=== PATIENT | female | born 1940 | race Caucasian/White ===

== ENCOUNTER → 2016-08-11 | Outpatient (CLI) | payer OTHER ==
[~2016-08-11] MED LIST: AMR2 PO; ASPI81TA28 PO; GLC500 PO; GLUCTAB7 PO; LEVO75TA5 PO; LISI-787 PO; LPT40 PO; MAGN400T6 PO; TNR25 PO
--- NOTE | 2016-08-22 13:46 | MAMMOGRAPHY REPORT ---
THIS REPORT HAS BEEN AMENDED. UNILATERAL RIGHT DIGITAL SCREENING MAMMOGRAM TOMOSYNTHESIS WITH CAD: 08/11/2016 CLINICAL HISTORY: Asymptomatic. Personal history of breast cancer. Routine screening. Post left mast ectomy. TECHNIQUE: Breast tomosynthesis in addition to standard 2D mammography was performed. Current study was also evaluated with a Computer Aided Detection (CAD) system. Right CC and MLO 2-D and tomosynt hesis images were obtained. COMPARISON: No prior exams were available for comparison. BREAST COMPOSITION: There are scattered areas of fibroglandular density in the right breast. FINDINGS: The patient is status post left mastectomy. There are no suspicious masses, calcificatio ns, or areas of architectural distortion noted in the right breast. A few scattered benign-appearin g calcifications are noted. IMPRESSION: ACR BI-RADS CATEGORY 0: INCOMPLETE EVALUATION: NEED ADDITIONAL IMAGING EVALUATION No mammographic evidence of malignancy in the right breast. However, recommend comparison with prio r outside mammograms to evaluate for any possible subtle changes. The prior outside mammograms have been requested, and an addendum will be made when they are received and a comparison is made. Approximately 10% of breast cancers are not detected with mammography. A negative mammographic repor t should not delay biopsy if a clinically suggestive mass is present. Rasheeda Stephenson M.D. ah/:08/19/2016 16:43:25 [employer] Teacher: Shana Golden M, [facility] letter sent: Need Priors 0 BI-RADS Code: ACR BI-RADS Category 0: Incomplete Evaluation: Need Additional Imaging Evaluation AMENDMENT: 08/24/2016 Rasheeda Stephenson M.D. Prior outside mammograms dated 11/14/2013, 11/08/2012, 11/07/2011 from [facility] have b ecome available for comparison. Compared to the prior exams, there has been no significant interval change. There is no mammographic evidence of malignancy in the right breast. Recommend routine sc reening mammograms in one year. Amended BI-RADS: ACR BI-RADS Category 2: Benign letter sent: Normal 06/20
== END | disposition home or self-care (01) ==
LOC: C.MAMM 14:35
PROVIDERS: ATTEND Family Medicine
DX: Z12.31 Encounter for screening mammogram for malignant neoplasm of breast (principal); Z90.12 Acquired absence of left breast and nipple; Z98.82 Breast implant status

== ENCOUNTER → 2016-09-07 | Outpatient (CLI) | payer OTHER ==
[2016-09-07 09:43] LABS: URINE APPEARANCE CLEAR (CLEAR); URINE BILIRUBIN NEG (NEG); URINE COLOR YELLOW; URINE EPITHELIAL CELL AUTO 0-5 /lpf (0-5); URINE NITRITE NEG (NEG); URINE SPECIFIC GRAVITY 1.018 (1.000-1.030); UROBILINOGEN NEG (NEG); ZZUR CULT IF INDIC CLEAN CATCH NO
[2016-09-07 09:44] LABS: BASO % 0.9 %; BASO ABS # 0.06 K/uL (0-0.2); COMPLETE YES; EOS % 2.5 %; HEMATOCRIT 41.4 % (37-47); IG% 0.1 %; LYMPH % 30.9 %; LYMPH ABS # 2.12 K/uL (1.2-3.4); MEAN CELL VOLUME 91.4 fL (80-100); MEAN CORPUSCULAR HEMOGLOBIN 30.2 pg (25-34); MEAN CORPUSCULAR HGB CONC 33.1 g/dl (32-36); MEAN PLATELET VOLUME 10.3 fL (7.4-10.4); MONO % 7.1 %; NEUT % 58.5 %; PLATELET COUNT 151 K/uL (130-400); RED BLOOD COUNT 4.53 M/uL (4.2-5.4); WHITE BLOOD COUNT 6.87 K/uL (4.8-10.8)
[2016-09-07 09:51] LABS: BLOOD UREA NITROGEN 29 mg/dl (7-18); BUN/CREATININE RATIO 22.1 (10-20); CALCIUM 10.3 mg/dl (8.5-10.1); CARBON DIOXIDE 28 mmol/L (21-32); CHLORIDE 104 mmol/L (98-107); GLUCOSE 230 mg/dl (70-99); MAGNESIUM 2.3 mg/dl (1.8-2.4); PHOSPHORUS 3.2 mg/dl (2.5-4.9); POTASSIUM 4.1 mmol/L (3.5-5.1); SODIUM 139 mmol/L (136-145)
[2016-09-07 09:59] LABS: ESTIMATED AVERAGE GLUCOSE 194 mg/dl; HA1C FLAG Normal (Normal)
[2016-09-07 10:01] LABS: MANUAL MICROSCOPIC REQUIRED? NO; REVIEW REQ? NO
[2016-09-07 10:02] LABS: URINE PROTIEN/CREAT RATIO 0.1 (0-0.2); URINE TOTAL PROTEIN 12.5 mg/dl (0-11.9)
== END | disposition home or self-care (01) ==
LOC: C.LAB1850 08:12
PROVIDERS: ATTEND Internal Medicine Nephrology
DX: E11.9 Type 2 diabetes mellitus without complications (principal); N18.3 Chronic kidney disease, stage 3 (moderate)

== ENCOUNTER → 2016-09-27 | Outpatient (CLI) | payer OTHER ==
[2016-09-27 12:31] LABS: BLOOD UREA NITROGEN 21 mg/dl (7-18); BUN/CREATININE RATIO 15.9 (10-20); CALCIUM 9.4 mg/dl (8.5-10.1); CARBON DIOXIDE 25 mmol/L (21-32); CHLORIDE 106 mmol/L (98-107); GLUCOSE 297 mg/dl (70-99); MAGNESIUM 2.1 mg/dl (1.8-2.4); POTASSIUM 4.7 mmol/L (3.5-5.1); SODIUM 139 mmol/L (136-145)
== END | disposition home or self-care (01) ==
LOC: C.LAB1850 11:06
PROVIDERS: ATTEND Internal Medicine Nephrology
DX: E21.3 Hyperparathyroidism, unspecified (principal); I12.9 Hypertensive chronic kidney disease with stage 1 through stage 4 chronic kidney disease, or unspecified chronic kidney disease; N18.3 Chronic kidney disease, stage 3 (moderate)

== ENCOUNTER → 2016-10-10 | Outpatient (CLI) | payer OTHER | END | disposition home or self-care (01) | LOC: C.MAMM 15:00 | PROVIDERS: ATTEND Internal Medicine Nephrology | DX: E21.3 Hyperparathyroidism, unspecified (principal); M81.0 Age-related osteoporosis without current pathological fracture; M85.89 Other specified disorders of bone density and structure, multiple sites ==

== ENCOUNTER → 2016-10-27 | Outpatient (CLI) | payer OTHER ==
[2016-10-27 10:03] LABS: BLOOD UREA NITROGEN 26 mg/dl (7-18); BUN/CREATININE RATIO 21.5 (10-20); CALCIUM 9.9 mg/dl (8.5-10.1); CARBON DIOXIDE 28 mmol/L (21-32); CHLORIDE 109 mmol/L (98-107); GLUCOSE 102 mg/dl (70-99); POTASSIUM 4.5 mmol/L (3.5-5.1); SODIUM 142 mmol/L (136-145)
== END | disposition home or self-care (01) ==
LOC: C.LAB1850 08:47
PROVIDERS: ATTEND Internal Medicine Nephrology
DX: N18.3 Chronic kidney disease, stage 3 (moderate) (principal)

== ENCOUNTER → 2016-12-05 | Outpatient (CLI) | payer OTHER | END | disposition home or self-care (01) | LOC: C.LAB1850 09:07 | PROVIDERS: ATTEND Internal Medicine Nephrology | DX: N18.3 Chronic kidney disease, stage 3 (moderate) (principal) ==

== ENCOUNTER → 2016-12-19 | Outpatient (CLI) | payer OTHER | END | disposition home or self-care (01) | LOC: C.RDSM 13:16 | PROVIDERS: ATTEND Physical Medicine & Rehabilitation Sports Medicine | DX: M25.562 Pain in left knee (principal) ==

== ENCOUNTER → 2017-01-09 | Outpatient (CLI) | payer OTHER ==
--- NOTE | 2017-01-09 15:12 | DIAGNOSTIC IMAGING REPORT ---
MRI OF THE CERVICAL SPINE WITHOUT CONTRAST CLINICAL HISTORY: Cervical disc disease. Neck and right upper extremity pain. COMPARISON: Cervical spine radiographs July 07, 2014. TECHNIQUE: Utilizing a 1.5 Rosy magnet and dedicated coil, multiplanar, multiecho imaging of the cervical spine was performed without IV contrast. FINDINGS: There is slight reversal of the normal cervical lordosis. Note is made of a T1 and T2 hyperintense T3 vertebral body lesion with coarsening of trabeculations consistent with a hemangioma. Cervical cord signal and caliber are normal. There is no intracanalicular mass or fluid collection. Note is made of a suspected 2 cm right lobe thyroid nodule. There is mild disc bulge at T1-T2. C2-C3: The central canal and left neural foramen are patent. There is mild narrowing of the right neural foramen. C3-C4: The central canal is patent. There is mild narrowing of the right neural foramen. C4-C5: Mild posterior disc osteophyte complex with a right paracentral disc protrusion result in mild to moderate narrowing of the central canal. There is severe narrowing of the right neural foramen due to a disc protrusion, uncovertebral hypertrophy and facet arthrosis. There is moderate narrowing of the left neural foramen. C5-C6: There is disc space narrowing with posterior disc osteophyte complex that results in mild to moderate narrowing of the left aspect of the canal. There is moderate narrowing of both neural foramen, greater on the left. C6-C7: There is disc space narrowing with disc osteophyte complex that results in mild to moderate narrowing of the central canal. There is mild narrowing of the right neural foramen and moderate narrowing of the left neural foramen. C7-T1: The central canal is patent. There is mild narrowing of the left neural foramen. IMPRESSION: 1. Mild to moderate central canal stenosis at C4-C5, C5-C6 and C6-C7. 2. Severe multilevel neural foraminal stenosis, most pronounced at the right C4-C5 neural foramen and the bilateral C5-C6 and C6-C7 neural foramen. 3. 2 cm right lobe thyroid nodule. Electronically signed by: Niels Ahumada M.D. 01/09/2017 3:11 PM Dictated Date/Time: 01/09/2017 2:50 PM
== END | disposition home or self-care (01) ==
LOC: C.MRIBC 13:47
PROVIDERS: ATTEND Physical Medicine & Rehabilitation Sports Medicine
DX: M50.90 Cervical disc disorder, unspecified, unspecified cervical region (principal)

== ENCOUNTER → 2017-01-16 | Outpatient (CLI) | payer OTHER ==
--- NOTE | 2017-01-16 12:08 | DIAGNOSTIC IMAGING REPORT ---
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 TECHNIQUE: Real-time grayscale and color and spectral Doppler ultrasound imaging of the thyroid and base of the neck was performed. COMPARISON: None. FINDINGS: Right lobe: Normal echogenicity and echotexture. The right lobe of the thyroid measures 3.8 x 1.5 x 2.4 cm. Multiple nodules indexed below: 1) Mid to upper pole well-defined hypoechoic nodule measuring 2.7 x 1.4 x 1.9 cm. No associated calcification. This nodule is wider than tall. Hyperemia noted on color Doppler. (Intermediate suspicion) 2) lower pole hypoechoic well-defined nodule measuring 1.0 x 0.8 x 0.8 cm. No calcifications. Internal vascularity. (Intermediate suspicion) Left lobe: Left lobe surgically absent. Small hypoechoic nodule measuring 0.6 x 0.6 x 0.5 cm posterior medial to the left carotid. Isthmus: The isthmus measures 2 mm in thickness. No nodules. IMPRESSION: 1. Two solid nodules in the right lobe of the thyroid are intermediate in suspicion per the [place] [employer] estimated risk of malignancy. Given their size, fine-needle aspiration of both nodules recommended. 2. Postsurgical changes of left lobe resection. Hypoechoic nodule posterior medial to the left carotid near the thyroidectomy bed. This could represent a parathyroid gland or focal recurrence. This could also be biopsied at the same time if clinically indicated. Electronically signed by: Augustus Kuhn M.D. 01/16/2017 12:07 PM Dictated Date/Time: 01/16/2017 12:01 PM
== END | disposition home or self-care (01) ==
LOC: C.ULTRBC 09:35
PROVIDERS: ATTEND Family Medicine
DX: E04.2 Nontoxic multinodular goiter (principal); Z98.890 Other specified postprocedural states

== ENCOUNTER → 2017-03-23 | Outpatient (CLI) | payer OTHER ==
[2017-03-23 10:48] LABS: BASO % 0.7 %; BASO ABS # 0.04 K/uL (0-0.2); COMPLETE YES; HEMATOCRIT 40.9 % (37-47); IG% 0.2 %; LYMPH ABS # 1.82 K/uL (1.2-3.4); MEAN CELL VOLUME 91.3 fL (80-100); MEAN CORPUSCULAR HEMOGLOBIN 28.8 pg (25-34); MEAN CORPUSCULAR HGB CONC 31.5 g/dl (32-36); MEAN PLATELET VOLUME 10.3 fL (7.4-10.4); MONO % 7.6 %; NEUT % 58.5 %; PLATELET COUNT 160 K/uL (130-400); RED BLOOD COUNT 4.48 M/uL (4.2-5.4); WHITE BLOOD COUNT 6.06 K/uL (4.8-10.8)
[2017-03-23 11:26] LABS: BLOOD UREA NITROGEN 24 mg/dl (7-18); BUN/CREATININE RATIO 19.7 (10-20); CALCIUM 9.7 mg/dl (8.5-10.1); CARBON DIOXIDE 24 mmol/L (21-32); CHLORIDE 107 mmol/L (98-107); GLUCOSE 174 mg/dl (70-99); MAGNESIUM 2.4 mg/dl (1.8-2.4); PHOSPHORUS 2.9 mg/dl (2.5-4.9); POTASSIUM 4.4 mmol/L (3.5-5.1); SODIUM 140 mmol/L (136-145)
== END | disposition home or self-care (01) ==
LOC: C.LABBC 08:41
PROVIDERS: ATTEND Internal Medicine Nephrology
DX: I12.9 Hypertensive chronic kidney disease with stage 1 through stage 4 chronic kidney disease, or unspecified chronic kidney disease (principal); E11.22 Type 2 diabetes mellitus with diabetic chronic kidney disease; N18.3 Chronic kidney disease, stage 3 (moderate); E21.3 Hyperparathyroidism, unspecified

== ENCOUNTER 2017-06-27 09:33 | Emergency (ER) | payer OTHER ==
[2017-06-27 09:37] VITALS: TEMP 37; Ht 167.6 cm
--- NOTE | 2017-06-27 10:21 | DIAGNOSTIC IMAGING REPORT ---
L ANKLE MIN 3 VIEWS ROUTINE CLINICAL HISTORY: Left ankle pain following fall. COMPARISON: None. FINDINGS: Alignment of the left ankle is anatomic. A well-corticated ossicle along the medial malleolus suggests old injury. Additional tiny calcific/ossific density along the medial malleolus represents an age indeterminate avulsion injury. No note is also made of subtle cortical irregularity of the dorsal distal talus. There is mild ankle soft tissue swelling. There is extensive posterior calcaneal spurring at the insertion of the Achilles. IMPRESSION: Age indeterminate avulsion fractures of the dorsal distal talus and medial malleolus. Electronically signed by: Niels Ahumada M.D. 06/27/2017 10:20 AM Dictated Date/Time: 06/27/2017 10:17 AM
--- NOTE | 2017-06-27 10:21 | DIAGNOSTIC IMAGING REPORT ---
L FOOT MIN 3 VIEWS ROUTINE CLINICAL HISTORY: fall, left lateral foot/ankle pain trauma. Pain. COMPARISON: None. DISCUSSION: Generalized osteopenia. Moderate generalized degenerative change throughout. No well-defined fracture or dislocation. Mild soft tissue edema. IMPRESSION: No acute process of foot. Degenerative change with mild soft tissue edema. The above report was generated using voice recognition software. It may contain grammatical, syntax or spelling errors. Electronically signed by: Alfredo Stinson M.D. 06/27/2017 10:20 AM Dictated Date/Time: 06/27/2017 10:18 AM
--- NOTE | 2017-06-27 10:24 | DIAGNOSTIC IMAGING REPORT ---
R HAND MIN 3 VIEWS ROUTINE CLINICAL HISTORY: fall, right hand pain/swelling trauma. Pain. Edema. COMPARISON: None. DISCUSSION: Generalized degenerative change. Mild generalized osteopenia. Soft tissue edema. No acute bony abnormality. There is no evidence for soft tissue swelling. IMPRESSION: Degenerative change. Osteopenia. No acute bony abnormality. The above report was generated using voice recognition software. It may contain grammatical, syntax or spelling errors. Electronically signed by: Alfredo Stinson M.D. 06/27/2017 10:22 AM Dictated Date/Time: 06/27/2017 10:21 AM
--- NOTE | 2017-06-27 10:24 | DIAGNOSTIC IMAGING REPORT ---
R WRIST W/NAVICULAR MIN 3 VIEWS CLINICAL HISTORY: fall, right lateral wrist pain. COMPARISON: None FINDINGS: There is a subtle lucency within the distal medial aspect of the right radius with intra-articular extension. This favors an acute to subacute fracture. No additional fractures are identified on this exam. 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 Scaphoid appears intact. IMPRESSION: Lucency of the distal medial right radius with intra-articular extension. This favors a nondisplaced acute to subacute fracture. Electronically signed by: Niels Ahumada M.D. 06/27/2017 10:23 AM Dictated Date/Time: 06/27/2017 10:20 AM
--- NOTE | 2017-06-27 11:06 | EMERGENCY ROOM VISIT NOTE ---
ED Visit Note First contact with patient: 09:42 The patient was seen and examined with Siobhan Erwin PA-C. I agree with the history, physical and findings. Please see the note for disposition and details.
--- NOTE | 2017-06-27 11:27 | EMERGENCY ROOM VISIT NOTE ---
ED Visit Note First contact with patient: 09:42 CHIEF COMPLAINT: Fall, right wrist pain, left ankle pain HISTORY OF PRESENT ILLNESS: This 76-year-old female patient presents to the emergency department, ambulatory, with her , complaining of pain in the right wrist after following 2 days ago. The patient states she was walking in the grass, when she slipped, falling and twisting her left ankle, and landing on her right outstretched hand. The patient is also experiencing pain in her left ankle. The patient is able to move their wrist. The patient states the pain is sharp and 6/10. No laceration, no weakness. No numbness or tingling. She states she noticed bruising and swelling into the lateral aspect of the hand radiating from the wrist yesterday. The patient denies any other injury. The patient is able to move their fingers and elbow without difficulty. The patient has not had a previous fracture to this wrist. The patient has taken Tylenol for the pain. The patient also complains of an injury to the left ankle and foot. She states when she fell, she believes she twisted and inverted the left ankle. The patient complains of pain along the outside of the ankle. The patient denies pain of the foot, but states she does have increased pain with direct pressure of the heel. The patient rates the pain as sharp and 6/10. The patient is able to bear weight on the foot, but she has been using a walker to help her ambulate around the house. Constant pain, worse with movement, weight bearing, and the dependent position. No knee pain, the patient is able to move their toes. No numbness or weakness of the foot, no laceration. The patient has not had a previous fracture to this ankle. REVIEW OF SYSTEMS: A 6 system review of systems was performed with positives and pertinent negatives in the HPI. ALLERGIES: Iodine PMH: Diabetes, hyperlipidemia, hypertension, hypothyroidism SOCIAL HISTORY: The patient lives locally with family. She denies drug, alcohol , tobacco use. PHYSICAL EXAM: Vital Signs: Reviewed Nurse's notes, vital signs stable. GENERAL: This is a 76-year-old white female, in no acute distress, but appears to be in pain, well-developed, well-nourished. NEURO: Alert and oriented to person place and time. Normal sensation to light and sharp touch. MUSCULOSKELETAL: There is no deformity of the right wrist or hand. There is tenderness and edema over lateral aspect of the right hand, and the distal radius/carpal bones. There is no snuff box tenderness. Range of motion is limited due to pain. There is no tenderness of the elbow, hand or fingers. Boom Boss strength 5/5. Radial pulse 2+. SKIN: Normal and intact. The hand is warm and well perfused with capillary refill less than 2 seconds. The left ankle is swollen and tender over the lateral malleolus, but the skin is intact and there is no ligamentous instability. There is fifth metatarsal tenderness. There is mild tenderness over the lateral aspect and he'll of the foot. There is no calf or tibia/fibular tenderness. There is no visual deformity. The foot and toes are warm and well-perfused. Dorsalis pedis pulse 2+. Sensation to pain and light touch is intact. Capillary refill less than 2 seconds. RADIOLOGY: EMERGENCY DEPARTMENT COURSE: I examined the patient. X-rays of the right hand and wrist and left ankle and foot were reviewed by myself and radiologist and showed an acute fracture of the distal radius. Chronic findings noted on the ankle/foot x-rays, however these are inconsistent with the patient's symptoms. A Volar orthoglass splint was placed under my direction and the position was satisfactory. The patient's ankle was placed in an ESE wrap. Neurovascular status rechecked and intact. The patient was concerned that she would not be able to schedule an appointment with orthopedics this week. I did offer to have our case workers schedule an appointment. The patient states she would feel better if we did. We did schedule her with Jef Bal PA-C in Dr. Fuchs's office for Monday morning. This was relayed to the patent and her . Discharge instructions were reviewed. The patient is encouraged to use her walker she has at home. I did offer pain medication several times either here in the ED or prescription to go home with and the patient declines, stating she will just take tylenol. The patient was discharged home in good condition. Blood Pressure Screening: Patient was found to have a slightly elevated blood pressure due to circumstances. I do not believe that the patient requires hypertension monitoring. I attest that I have personally reviewed the patient's current medication list. I did speak with Dr. Choudhury regarding the case. He did independently see and evaluate the patient. Please see his dictation. DIFFERENTIAL DIAGNOSIS: Mechanical fall, fracture, contusion, sprain, strain, head injury, concussion, intracranial hemorrhage, malignancy, and others DIAGNOSIS: Right distal radius fracture, left ankle sprain, mechanical fall Problem List Medical Problems: (1) Diabetes Status: Chronic (2) HTN (hypertension) Status: Chronic (3) Hyperlipidemia Status: Chronic Current/Historical Medications Scheduled Aspirin (Aspirin Ec), 81 MG PO QAM Atenolol (Atenolol), 25 MG PO HS Atorvastatin (Atorvastatin Calcium), 40 MG PO HS Glimepiride (Glimepiride), 2 MG PO BID Oywtewegnvr-Vkotrxpgwxr-Pdb C- (Glucosamine Chondroitin), 1 TAB PO BID Levothyroxine Sodium (Levothyroxine Sodium), 75 MCG PO 5XWK Lisinopril & Hydrochlorothiazi (Zestoretic 20-12.5 mg), 1 TAB PO QAM Magnesium Oxide (Mag-Ox), 400 MG PO DAILY Metformin HCl (Metformin HCl), 500 MG PO QAM Allergies Coded Allergies: Iodine (Verified Allergy, Unknown, RASH, 06/27/17) Vital Signs Date Time Temp Pulse Resp B/P (MAP) Pulse Ox O2 Delivery O2 Flow Rate FiO2 06/27/17 11:52 68 20 143/67 94 06/27/17 09:37 37.0 86 18 183/86 96 Room Air Departure Information Impression Primary Impression: Fall Additional Impressions: Left ankle sprain Fracture of right distal radius Dispostion Home / Self-Care Condition GOOD Referrals Lena Nevarez D.OUmm (PCP) Patient Instructions ED Fx Wrist General, ED Mechanical Fall, ED Sprain Ankle, [facility] Additional Instructions ORTHOPEDIC INSTRUCTIONS: Acetaminophen(Tylenol) may be used for fever or pain. Use 500-1000mg every six to eight hours as needed. Avoid using more than 3000mg in a 24 hour period. Ice compresses for 20 minutes at a time four times daily for 2-3 days. Use the walker you have at home to help with ambulation due to the ankle sprain/ contusion. Wear the ese wrap for support/compression of the ankle due to sprain/contusion. Rest and elevate your injury. Do not get the wrist splint wet. If your splint feels excessively tight, you have worsening pain, develop numbness or tingling, or your digits appear blue, loosen the ese wrap. Then reapply the ese wrap gently without removing the splint. If your symptoms are not quickly relieved return to the ER for re- evaluation. Return to the ER immediately for any numbness, tingling, severe pain, extreme swelling in the extremities or as needed. You were scheduled an appointment with Jef Bal on Monday at 07:45 with [facility] for re-evaluation and further management. Please keep this appointment. Contact their office for any problems or need to be seen sooner. Problem Qualifiers Primary Impression: Fall Encounter type: initial encounter Qualified Codes: W19.XXXA - Unspecified fall, initial encounter Additional Impressions: Left ankle sprain Encounter type: initial encounter Involved ligament of ankle: unspecified ligament Qualified Codes: S93.402A - Sprain of unspecified ligament of left ankle, initial encounter Fracture of right distal radius Encounter type: initial encounter Fracture type: closed Fracture morphology : other intra-articular Qualified Codes: S52.571A - Other intraarticular fracture of lower end of right radius, initial encounter for closed fracture
[2017-06-27 11:52] VITALS: BP 143/67; PULSE 68; O2SAT 94
== END 2017-06-27 11:56 | disposition home or self-care (01) ==
LOC: C.EDB 09:35 → C.EDC 11:56
DX: S52.501A Unspecified fracture of the lower end of right radius, initial encounter for closed fracture (principal); S93.402A Sprain of unspecified ligament of left ankle, initial encounter; W01.0XXA Fall on same level from slipping, tripping and stumbling without subsequent striking against object, initial encounter; E11.9 Type 2 diabetes mellitus without complications; I10 Essential (primary) hypertension; E78.5 Hyperlipidemia, unspecified; E03.9 Hypothyroidism, unspecified; Z79.82 Long term (current) use of aspirin; Z79.84 Long term (current) use of oral hypoglycemic drugs; Z79.899 Other long term (current) drug therapy; Z91.09 Other allergy status, other than to drugs and biological substances

== ENCOUNTER → 2017-07-07 | Outpatient (CLI) | payer OTHER ==
--- NOTE | 2017-07-07 08:23 | DIAGNOSTIC IMAGING REPORT ---
R WRIST MIN 3 VIEWS ROUTINE CLINICAL HISTORY: RIGHT WRIST FRACTURE trauma. Pain. Patient is now casting material. COMPARISON: 06/27/2017 DISCUSSION: Alignment of the distal radius and distal ulna appear anatomic. The subtle lucency procedure described in the distal radius is not seen presumably due to overlying casting material. Mild degenerative changes intercarpal joints are noted. There is no evidence for soft tissue swelling. IMPRESSION: Anatomic alignment is preserved post casting. The above report was generated using voice recognition software. It may contain grammatical, syntax or spelling errors. Electronically signed by: Alfredo Stinson M.D. 07/07/2017 8:21 AM Dictated Date/Time: 07/07/2017 8:20 AM
== END | disposition home or self-care (01) ==
LOC: C.RDSM 08:00
PROVIDERS: ATTEND Physician Assistant
DX: S62.101A Fracture of unspecified carpal bone, right wrist, initial encounter for closed fracture (principal); X58.XXXA Exposure to other specified factors, initial encounter

== ENCOUNTER → 2017-07-28 | Outpatient (CLI) | payer OTHER ==
--- NOTE | 2017-07-28 13:11 | DIAGNOSTIC IMAGING REPORT ---
R WRIST MIN 3 VIEWS ROUTINE CLINICAL HISTORY: 76 years-old Female presenting with RIGHT WRIST FRACTURE. TECHNIQUE: Frontal, oblique, and lateral views of the right wrist were obtained. COMPARISON: 07/07/2017. FINDINGS: Osteopenia. No acute fracture or malalignment. No periosteal reaction or cortical abnormality to suggest the site of prior fracture. Mild degenerative change suggested at the scaphoid-trapezium and trapezium-first metacarpal articulations. Radiocarpal articulations intact. Distal radial ulnar articulation intact. IMPRESSION: 1. No acute osseous abnormality or evidence of prior injury. 2. Osteopenia. 3. Mild degenerative change. Electronically signed by: Augustus Kuhn M.D. 07/28/2017 1:09 PM Dictated Date/Time: 07/28/2017 1:07 PM
== END | disposition home or self-care (01) ==
LOC: C.RDSM 19:25
PROVIDERS: ATTEND Physician Assistant
DX: S62.101D Fracture of unspecified carpal bone, right wrist, subsequent encounter for fracture with routine healing (principal); M85.88 Other specified disorders of bone density and structure, other site; X58.XXXD Exposure to other specified factors, subsequent encounter

== ENCOUNTER → 2017-08-25 | Outpatient (CLI) | payer OTHER ==
--- NOTE | 2017-08-25 11:33 | DIAGNOSTIC IMAGING REPORT ---
R WRIST MIN 3 VIEWS ROUTINE CLINICAL HISTORY: RIGHT DISTAL RADIUS FX trauma COMPARISON: 07/28/2017 DISCUSSION: No current evidence for fracture. Moderate degenerative change. Osteopenia. No abnormal depressed reaction. There is no evidence for soft tissue swelling. IMPRESSION: No current evidence for fracture. Degenerative change. Osteopenia. The above report was generated using voice recognition software. It may contain grammatical, syntax or spelling errors. Electronically signed by: Alfreod Stinson M.D. 08/25/2017 11:32 AM Dictated Date/Time: 08/25/2017 11:30 AM
== END | disposition home or self-care (01) ==
LOC: C.RDSM 11:25
PROVIDERS: ATTEND Physician Assistant
DX: M85.88 Other specified disorders of bone density and structure, other site (principal); M19.031 Primary osteoarthritis, right wrist

== ENCOUNTER → 2017-08-28 | Outpatient (CLI) | payer OTHER ==
--- NOTE | 2017-08-29 15:13 | MAMMOGRAPHY REPORT ---
UNILATERAL RIGHT DIGITAL SCREENING MAMMOGRAM TOMOSYNTHESIS WITH CAD: 08/28/2017 CLINICAL HISTORY: Routine screening. Patient has no complaints. TECHNIQUE: Breast tomosynthesis in addition to standard 2D mammography was performed. Current study was also evaluated with a Computer Aided Detection (CAD) system. COMPARISON: Comparison is made to exam dated: 08/11/2016 mammogram - [facility]. BREAST COMPOSITION: There are scattered areas of fibroglandular density in the right breast. FINDINGS: The parenchymal pattern is similar to prior mammograms. There are a few benign-appearing calcifications.No developing mass, architectural distortion or cluster of suspicious microcalcificati ons is seen. IMPRESSION: ACR BI-RADS CATEGORY 2: BENIGN There is no mammographic evidence of malignancy. A 1 year screening mammogram is recommended. The pa tient will receive written notification of the results. Approximately 10% of breast cancers are not detected with mammography. A negative mammographic report should not delay biopsy if a clinically suggestive mass is present. Meri Patiño M.D. ay/:08/28/2017 15:12:39 Cold Reduction Roller: Zuleima CRUZ(R)([place]), [facility] letter sent: Normal 1/2 BI-RADS Code: ACR BI-RADS Category 2: Benign
== END | disposition home or self-care (01) ==
LOC: C.MAMM 14:36
PROVIDERS: ATTEND Family Medicine
DX: Z12.31 Encounter for screening mammogram for malignant neoplasm of breast (principal)

== ENCOUNTER → 2017-09-20 | Outpatient (CLI) | payer OTHER ==
[2017-09-20 09:34] LABS: BASO % 0.7 %; BASO ABS # 0.04 K/uL (0-0.2); EOS % 3.2 %; EOS ABS # 0.19 K/uL (0-0.5); HEMATOCRIT 42.3 % (37-47); HEMOGLOBIN 13.6 g/dL (12.0-16.0); IG# 0.01 K/uL (0.00-0.02); LYMPH % 31.2 %; LYMPH ABS # 1.83 K/uL (1.2-3.4); MEAN CORPUSCULAR HEMOGLOBIN 29.2 pg (25-34); MEAN CORPUSCULAR HGB CONC 32.2 g/dl (32-36); MEAN PLATELET VOLUME 9.9 fL (7.4-10.4); MONO % 7.7 %; MONO ABS # 0.45 K/uL (0.11-0.59); NEUT ABS # 3.35 K/uL (1.4-6.5); PLATELET COUNT 141 K/uL (130-400); RED CELL DISTRIBUTION WIDTH CV 12.9 % (11.5-14.5); RED CELL DISTRIBUTION WIDTH SD 42.6 fL (36.4-46.3); WHITE BLOOD COUNT 5.87 K/uL (4.8-10.8)
[2017-09-20 09:50] LABS: HEMOGLOBIN A1C 7.7 % (4.5-5.6)
[2017-09-20 10:47] LABS: ALBUMIN 4.1 gm/dl (3.4-5.0); BLOOD UREA NITROGEN 21 mg/dl (7-18); CALCIUM 9.9 mg/dl (8.5-10.1); CARBON DIOXIDE 28 mmol/L (21-32); CREATININE 1.19 mg/dl (0.60-1.20); GLUCOSE 194 mg/dl (70-99); POTASSIUM 4.5 mmol/L (3.5-5.1); SODIUM 138 mmol/L (136-145)
[2017-09-20 10:58] LABS: PHOSPHORUS 3.2 mg/dl (2.5-4.9)
== END | disposition home or self-care (01) ==
LOC: C.LAB1850 08:33
PROVIDERS: ATTEND Family Medicine
DX: I10 Essential (primary) hypertension (principal); E11.9 Type 2 diabetes mellitus without complications; E03.9 Hypothyroidism, unspecified

== ENCOUNTER → 2018-02-01 | Outpatient (CLI) | payer OTHER ==
[~2018-02-01] MED LIST changes: +CLIN150C PO; +ERGO500037 PO; +FOSAMAX PO; +SODI10IN5
--- NOTE | 2018-02-01 09:07 | DIAGNOSTIC IMAGING REPORT ---
RIGHT HAND 3 VIEWS HISTORY: RIGHT HAND PAIN COMPARISON: None. FINDINGS: There is no fracture or dislocation. Soft tissues are unremarkable. The bones are osteopenic. Mild osteoarthritis throughout the hand and wrist. No erosive changes identified. IMPRESSION: 1. No fractures. 2. Diffuse osteopenia and mild osteoarthritis. Electronically signed by: Bruno Parker M.D. 02/01/2018 9:06 AM Dictated Date/Time: 02/01/2018 8:59 AM
== END | disposition home or self-care (01) ==
LOC: C.RDSM 08:52
PROVIDERS: ATTEND Orthopaedic Surgery
DX: M79.641 Pain in right hand (principal); M85.841 Other specified disorders of bone density and structure, right hand